=== PATIENT | female | born 1970 | race Caucasian/White ===

== ENCOUNTER 2023-04-23 22:30 | Emergency (ER) | payer MEDICAID ==
[~2023-04-23] VITALS: Ht 165.1 cm; Wt 65.7 kg
[2023-04-24 03:21] VITALS: BP 120/82; PULSE 73; RESP 16; TEMP 98.1; O2SAT 94
== END 2023-04-24 03:24 | disposition home or self-care (01) ==
LOC: ER 22:31
DX: M79.671 Pain in right foot (principal)
CPT/HCPCS: 73630; 93971; 99285